=== PATIENT | male | born 1995 | race Caucasian/White ===

== ENCOUNTER 2020-08-29 07:50 | Outpatient (REF) | payer OTHER, SELFPAY | END 2020-08-29 07:51 | disposition home or self-care (01) | LOC: HO.HMGCLDS 07:50 | PROVIDERS: PCP Nurse Practitioner Family; Visit Provider Internal Medicine | DX: Z20.828 Contact with and (suspected) exposure to other viral communicable diseases (principal) | CPT/HCPCS: C9803; U0003 ==

== ENCOUNTER → 2021-01-01 11:18 | Outpatient (BNVA) | payer OTHER, SELFPAY | PROVIDERS: PCP Nurse Practitioner Family; Visit Provider Nurse Practitioner ==

== ENCOUNTER → 2021-03-24 15:12 | Outpatient (BNVA) | payer OTHER, SELFPAY | PROVIDERS: PCP Nurse Practitioner Family; Visit Provider Nurse Practitioner | DX: Z13.89 Encounter for screening for other disorder (principal) | CPT/HCPCS: Q3014 ==

== ENCOUNTER → 2021-10-27 09:52 | Outpatient (BNVA) | payer OTHER, SELFPAY | PROVIDERS: PCP Nurse Practitioner Family; Referring Provider Nurse Practitioner Family; Visit Provider Nurse Practitioner | DX: K21.9 Gastro-esophageal reflux disease without esophagitis (principal); K58.0 Irritable bowel syndrome with diarrhea; R13.12 Dysphagia, oropharyngeal phase | CPT/HCPCS: 99212 ==

== ENCOUNTER → 2022-04-28 08:08 | Outpatient (BNVA) | payer OTHER, SELFPAY | PROVIDERS: PCP Nurse Practitioner Family; Visit Provider Nurse Practitioner | DX: K21.9 Gastro-esophageal reflux disease without esophagitis (principal); K58.0 Irritable bowel syndrome with diarrhea; R13.12 Dysphagia, oropharyngeal phase; Z79.899 Other long term (current) drug therapy | CPT/HCPCS: 99212 ==

== ENCOUNTER 2023-04-27 08:12 | Outpatient (AMB) | payer OTHER, SELFPAY ==
--- NOTE | 2023-04-27 08:14 | A.OFFVIS_ITS ---
Intake Intake Visit Reasons: 1 yr follow up Allergies divalproex sodium [From DEPAKOTE] Allergy (Unknown, Verified 07/13/22 16:22) UNKNOWN lithium [LITHIUM] Allergy (Unknown, Verified 07/13/22 16:22) STOMACH UPSET, nausea and vomiting, vomiting risperidone [From RISPERDAL] Allergy (Unknown, Verified 07/13/22 16:22) NAUSEA & VOMITING Cheese Flavor Allergy (Unknown, Uncoded 07/13/22 16:22) Unknown HPI 1 yr follow up HPI Details Assessment & Plan (1) GERD (gastroesophageal reflux disease): ?Code(s): K21.9 - Gastro-esophageal reflux disease without esophagitis (2) Irritable bowel syndrome with diarrhea: ?Code(s): K58.0 - Irritable bowel syndrome with diarrhea (3) Oropharyngeal dysphagia: ?Comment: ?resolved with better control of the reflux ?Code(s): R13.12 - Dysphagia, oropharyngeal phase ? ? ? Medications: Refilled sucralfate 1 g? PO QID 112 ta bs 12RF K58.0 - Irritable bowel syndrome wit h diarrhea ? rbjsak-thbgxafh-kr ylase 24,000-76,00 0 -120,000 unit (C reon) 1 cap? PO QID 112 caps 12RF K58.0 - Irritable bowel syndrome wit h diarrhea ? dicyclomine 10 mg? PO TID 30 d ays 90 caps 2RF K58.0 - Irritable bowel syndrome wit h diarrhea, R13.12 - Dysphagia, orop haryngeal phase ? cimetidine 400 mg? PO BEDTIME 28 tabs 12RF K21.9 - Gastro-eso phageal reflux dis ease without esoph agitis CORRESPONDENCE On 03/22/22 @ 15:00 Carlee Aguilera Wrote To Gavin,January PT wanted me to make you aware he will no longer be coming into the office for appointments unless he needs a refill on his medications. TODAY'S VISIT He is here today with a female family member who is supportive. He surprisingly talkative today as he tells me he continues to do well on his GI regimen. 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 He continues on his Carafate, cimetidine, dicyclomine and Creon. Since he continues to be happy with his GI regimen I will see him again in 1 year. FORMERLY [facility], [facility] Surgical History [place] teeth extracted Family History Father No problems noted. Mother HTN (hypertension) Asthma Diabetes mellitus Social History Household Members: Family Alcohol intake: never Patient Tobacco Use Status: Never used Tobacco Review of Systems Const Denies fatigue, Denies fever(s), Denies night sweats, Denies poor appetite and Denies weight loss Eyes Details: Glasses Reports requires corrective lenses ENT Reports Normal hearing present, Denies dental pain, Denies dysphagia, Denies hearing loss, Denies mouth pain, Denies odynophagia, Denies throat swelling, Denies tongue swelling and Reports other (Dentition adequate) Card Reports no additional complaints Resp Reports no additional complaints GI Denies abdominal pain, Denies melena, Denies bloating, Denies hematochezia, Reports constipation, Denies GI cramping, Denies dysphagia, Denies excessive flatus, Denies early satiety, Reports heartburn, Reports diarrhea, Denies nausea , Denies odynophagia, Denies vomiting and Denies hematemesis Skin/Breast Denies pruritus, Denies lesions, Denies rash and Denies jaundice Neuro Reports Normal hearing present and Denies Abnormal speech present Psych Details: The autism Endo Denies fatigue Aller/Immun Denies throat swelling and Denies tongue swelling Physical Exam Const General: cooperative, no acute distress, well developed and well groomed Nutritional Appearance: average body habitus and well nourished Orientation/consciousness: oriented to person, oriented to place and oriented to time Limitations: No language barrier and other limitations HEENT Head: Yes normocephalic and Yes atraumatic Eyes General: appearance normal, both eyes and all related structures Pupils: Equal, round and reactive pupils present Neck Neck: Yes normal visual inspection and Yes no lymphadenopathy Thyroid: Thyroid normal Resp Effort & Inspection: normal respiratory effort and able to speak in complete sentences Auscultation: clear to auscultation bilaterally Cardio Rate: regular rate Rhythm: regular rhythm Heart sounds: Normal, physiologic split S2 sound present Peripheral pulses: radial pulses present and posterior tibial pulses present GI Inspection: No distended and No Abdominal panniculus present Palpation (GI): Soft to palpation, nontender, no guarding, not rigid and No hepatosplenomegaly present Percussion: Yes normal to percussion Auscultation: normal bowel sounds Rectal Exam - Male: Yes deferred Skin General skin exam: no rashes or lesions noted, turgor normal, skin not dry, no jaundice, No spider nevi and no striae Rashes: no rashes Nails: normal Neuro General: oriented to person, oriented to place and oriented to time Cranial nerves: Yes Equal, round and reactive pupils present and Yes Normal h earing present Speech: No Abnormal speech present Extrem General: Yes normal to inspection, No clubbing, No cyanosis and No edema Psych Appearance: grossly normal and well kempt Mental Status: mental status grossly normal Speech and movement: Normal speech and movement present Affect: normal affect Attitude: cooperative and Avoids eye contact (attititude/behavior) (His baseline as autism) Thought process: Normal thought process present and not confabulating Thought content: Normal thought content present Insight: Limited insight present (Psych) Judgement: Limited judgement present (Psych) Assessment & Plan Assessment & Plan (1) GERD (gastroesophageal reflux disease): Code(s): K21.9 - Gastro-esophageal reflux disease without esophagitis Plan: He is here today with a female family member who is supportive. He surprisingly talkative today as he tells me he continues to do well on his GI regimen. 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 He continues on his Carafate, cimetidine, dicyclomine and Creon. Since he continues to be happy with his GI regimen I will see him again in 1 yea (2) Irritable bowel syndrome with diarrhea: Code(s): K58.0 - Irritable bowel syndrome with diarrhea Medications: Refilled cimetidine 400 mg PO BEDTIME 28 tabs 12RF K21.9 - Gastro-esophageal reflux disease without esophagitis dicyclomine 10 mg PO TID 84 caps 12RF K58.0 - Irritable bowel syndrome with diarrhea, R13.12 - Dysphagia, oropharyngeal phase dopcfn-uihgcgom-tqpsdal 24,000-76,000 -120,000 unit (Creon) 1 cap PO QID 112 caps 12RF K58.0 - Irritable bowel syndrome with diarrhea sucralfate 1 g PO QID 112 tabs 12RF K58.0 - Irritable bowel syndrome with diarrhea Coding Level of Care Code Est Pt Level 3 (21899) Diagnoses GERD (gastroesophageal reflux disease) K21.9 Irritable bowel syndrome with diarrhea K58.0
== END 2023-04-27 08:36 | disposition home or self-care (01) ==
PROVIDERS: Visit Provider Nurse Practitioner
DX: K21.9 Gastro-esophageal reflux disease without esophagitis (principal); K58.0 Irritable bowel syndrome with diarrhea
CPT/HCPCS: 99213

== ENCOUNTER → 2023-04-27 08:12 | Outpatient (BNVA) | payer OTHER, SELFPAY | PROVIDERS: Visit Provider Nurse Practitioner | DX: K21.9 Gastro-esophageal reflux disease without esophagitis (principal); K58.0 Irritable bowel syndrome with diarrhea | CPT/HCPCS: 99212 ==

== ENCOUNTER 2023-10-17 10:51 | Outpatient (AMB) | payer OTHER, SELFPAY ==
--- NOTE | 2023-10-17 11:00 | MHC.PC.OV ---
Vital Signs 10/17/23 11:01 Weight 213 lb BP 120/86 Blood Pressure Location Lt brachial Position Sitting Pulse 103 H Pulse Source Pulse Oximeter Pulse Oximetry (%) 99 Oxygen Delivery Method Room Air Intake Visit Reasons: Annual PE Intake Note: Patient here for physical exam. no new issues or concerns. Allergies divalproex sodium [From DEPAKOTE] Allergy (Unknown, Verified 10/17/23 11:02) UNKNOWN lithium [LITHIUM] Allergy (Unknown, Verified 10/17/23 11:02) STOMACH UPSET, nausea and vomiting, vomiting risperidone [From RISPERDAL] Allergy (Unknown, Verified 10/17/23 11:02) NAUSEA & VOMITING Cheese Flavor Allergy (Unknown, Uncoded 10/17/23 11:02) Unknown Tobacco use date assessed: 10/17/23 Dental Screening Dental Screen Date: 10/17/23 Did you have a dental visit in the last 12 months?: Yes Did you have a dental problem in the last 6 months where you did not have access to dental care?: No Was dental information given to patient?: Patient has dentist HPI Annual PE HPI Details Pt is here for a PE. Will order labs. PFSH Surgical History [place] teeth extracted Family History Father No problems noted. Mother HTN (hypertension) Asthma Diabetes mellitus Social History Household Members: Family Housing: House Alcohol intake: never Patient Tobacco Use Status: Never used Tobacco e-Cigarette/Vaping Use: Never Used Current occupational status: employed and unemployed Current occupational exposures/hazards: No Cognitive needs: No Hearing needs: No Vision needs: Yes Questionnaire PHQ-9 Over the last 2 weeks, how often have you been bothered by any of the following problems? 48234 - PHQ-9 Billing: Patient declined-do not bill Source: Developed by Drs. Vlad Quiles, Zulma Lindsay, Linwood Lee and colleagues, with an educational jonah from [employer] Thrive Questionnaire Date Thrive assessed: 10/17/23 What is your living situation today?: I choose not to answer this question Within the past 12 months, did the food you bought not last and you didn't have the money to get more?: I choose not to answer this question Within the past 12 months, did you worry whether your food would run out before you got money to buy more?: I choose not to answer this question Do you have trouble paying for medicines?: I choose not to answer this question Do you have trouble getting transportation to medical appointments?: I choose not to answer this question Do you have trouble paying your heating and electricity bill?: I choose not to answer this question Do you have trouble taking care of your child, family member or friend?: I choose not to answer this question Do you have trouble with day-to-day activities such as bathing, preparing meals, shopping, managing finances, etc.?: I choose not to answer this question Are you currently unemployed and looking for a job?: I choose not to answer this question Are you interested in more education?: I choose not to answer this question AUDIT C Alcohol Use Questionnaire (AUDIT-C) 1. How often do you have a drink containing alcohol?: Never 3. How often do you have six or more drinks on one occasion?: Never Total Score: 0 Score Reviewed/Action Taken: No SHIV-7 AMB Questionnaire SHIV-7 Date SHIV - 7 assessed: 10/17/23 Source: Developed by Drs. Vlad Quiles, Zulma Lindsay, Linowod Lee and colleagues, with an educational jonah from [employer] SHIV-7 Assessment Billing SHIV-7 Assessment Tool: pt declined-do not bill Review of Systems Const Denies chills and Denies fever(s) Eyes Denies blurry vision ENT Denies vertigo, Denies dizziness and Denies sore throat Card Denies chest pain at rest, Denies chest pain with activity, Denies diaphoresis, Denies dyspnea and Denies dyspnea on exertion Resp Denies cough, Denies dyspnea, Denies dyspnea on exertion and Denies wheezing GI Denies abdominal pain, Denies melena, Denies hematochezia, Denies constipation, Denies diarrhea and Denies loose stools Denies hematuria Musc Denies numbness and Denies tingling Skin/Breast Denies lesions Neuro Denies vertigo, Denies dizziness, Denies numbness and Denies tingling Psych Denies anxiety, Denies depression, Denies homicidal ideation, Denies suicidal ideation and Denies other (substance abuse) Aller/Immun Denies wheezing Physical exam (Primary Care) Vital Signs: Last Vital Signs Pulse 103 H 10/17/23 11:01 BP 120/86 10/17/23 11:01 Pulse Ox 99 10/17/23 11:01 Oxygen Delivery Method Room Air 10/17/23 11:01 Tobacco/Smoking Status: Tobacco use Status Tobacco use date assessed 10/17/23 10/17/23 11:05 Patient Tobacco Use Status Never used Tobacco 10/17/23 11:01 e-Cigarette/Vaping Use Never Used 10/17/23 11:05 Thrive Assessment: Date of Thrive Assessment Date Thrive assessed 10/17/23 10/17/23 11:05 Const General: cooperative Nutritional Appearance: well nourished Orientation/consciousness: patient oriented x3 HENMT Other: cerumen noted to left ear, after ear lavage TM easily seen Head: Yes normal to inspection, Yes normocephalic and Yes atraumatic Ears: TM normal on the right Eyes General: appearance normal, both eyes and all related structures Alignment and Position: alignment normal and position normal Neck Neck: Yes normal visual inspection and Yes no lymphadenopathy Thyroid: Thyroid normal Resp Effort & Inspection: normal respiratory effort Auscultation: clear to auscultation bilaterally Cardio Rate: regular rate Rhythm: regular rhythm Heart sounds: S1 normal heart sound present, S2 normal heart sound present and no murmurs GI Palpation (GI): Soft to palpation and nontender Auscultation: normal bowel sounds Male General Exam: Yes normal external exam Penis: normal penis Scrotum: scrotum normal, testes descended bilaterally and no inguinal hernias Testes: no testicular mass Skin Rashes: no rashes Neuro General: patient oriented x3, moves all extremities, no focal motor deficits and deep tendon reflexes 2+ bilaterally Romberg Test: Negative Psych Appearance: grossly normal Mental Status: mental status grossly normal Speech and movement: Normal speech and movement present Affect: normal affect Attitude: cooperative Thought process: Normal thought process present Thought content: Normal thought content present Insight: Good insight present (Psych) Judgement: Good judgement present (Psych) Office Procedures Cerumen Removal From which ear canal was the cerumen removed: left Removal: irrigation Notes: patient tolerated procedure well, no complications and ear canal clear [id number] Irrigation/Lavage Assessment and Plan Assessment & Plan (1) Physical exam: Code(s): Z00.00 - Encounter for general adult medical examination without abnormal findings Plan: Labs ordered (2) Excessive cerumen in left ear canal: Code(s): H61.22 - Impacted cerumen, left ear Plan: flushed without difficulty Plan The patient agreed to the use of a certified court/medical interpreter for this encounter. Scribed for NEHEMIAS Calvillo by Benita Oquendo certified court/medical interpreter, on 10/17/2023 at 11:15 EST. Orders: Orders UA CC w/rflx Micro + Cult Today H61.20 - Impacted cerumen, unspecified ear, Z00.00 - Encounter for general adult medical examination without abnormal findings Lipid Panel Today H61.20 - Impacted cerumen, unspecified ear, Z00.00 - Encounter for general adult medical examination without abnormal findings Complete Blood Count Auto Diff Today H61.20 - Impacted cerumen, unspecified ear, Z00.00 - Encounter for general adult medical examination without abnormal findings Comprehensive [place]. Panel Fast Today H61.20 - Impacted cerumen, unspecified ear, Z00.00 - Encounter for general adult medical examination without abnormal findings TSH reflex Free T4 Today H61.20 - Impacted cerumen, unspecified ear, Z00.00 - Encounter for general adult medical examination without abnormal findings Coding Level of Care Code Est Pt Prev Care 18-39y(96166) Diagnoses Physical exam Z00.00 Excessive cerumen in left ear canal H61.22 CPT Codes Office Procedure - CPT: 96021-Iau Irrigation/Lavage ([id number])
[2023-10-17 11:01] VITALS: BP 120/86; PULSE 103; O2SAT 99
== END 2023-10-17 12:34 | disposition home or self-care (01) ==
PROVIDERS: PCP Nurse Practitioner Family; Visit Provider Nurse Practitioner Family
DX: Z00.00 Encounter for general adult medical examination without abnormal findings (principal); H61.22 Impacted cerumen, left ear
CPT/HCPCS: 69209; 99395

== ENCOUNTER 2023-10-28 11:44 | Outpatient (AMB) | payer OTHER, SELFPAY ==
--- NOTE | 2023-10-28 11:46 | AM.OFFWIN_ITS ---
Intake Vital Signs 10/28/23 11:58 Height 5 ft 8 in Weight 215 lb BMI 32.7 BP 140/80 H Blood Pressure Location Lt brachial Position Sitting Pulse 83 Pulse Source Pulse Oximeter Temp 97.0 F Temp Source Temporal Artery Scan Pulse Oximetry (%) 98 Oxygen Delivery Method Room Air Intake Visit Reasons: EP coughing sneezing [id number] Intake Note: pt is here today for coughing sneezing started 1 week ago Patient Tobacco Use Status: Never used Tobacco Allergies divalproex sodium [From DEPAKOTE] Allergy (Unknown, Verified 10/28/23 12:00) UNKNOWN lithium [LITHIUM] Allergy (Unknown, Verified 10/28/23 12:00) STOMACH UPSET, nausea and vomiting, vomiting risperidone [From RISPERDAL] Allergy (Unknown, Verified 10/28/23 12:00) NAUSEA & VOMITING Cheese Flavor Allergy (Unknown, Uncoded 10/17/23 11:02) Unknown Do you need a note to return to daycare/school/sports/work: Yes HPI HPI Comments History of Present Illness Details This is a 28-year-old male who is presenting to the office requesting a return to work note. The patient has mild URI symptoms including nasal/sinus congestion, rhinorrhea with clear drainage, and a dry cough. He denies any shortness a breath or fever/chills. He denies any nausea/vomiting/diarrhea. Patient and his mother state that the patient tested positive for COVID-19 on 10/22/2023 and we had a negative COVID-19 test today on 10/28/2023. Patient and his mother are requesting a note so that he may return to his program and work. The patient still has very mild cold symptoms but the patient feels like they have improved. He has not had any fevers. [facility] Surgical History [place] teeth extracted Family History Father No problems noted. Mother HTN (hypertension) Asthma Diabetes mellitus Social History Household Members: Family Housing: House Alcohol intake: never Patient Tobacco Use Status: Never used Tobacco e-Cigarette/Vaping Use: Never Used Current occupational status: employed and unemployed Current occupational exposures/hazards: No Cognitive needs: No Hearing needs: No Vision needs: Yes Review of Systems Const All systems reviewed & are unremarkable except as noted in HPI and below Reports no additional complaints Eyes Reports no additional complaints ENT Reports no additional complaints Card Reports no additional complaints Resp Reports no additional complaints GI Reports no additional complaints Reports no additional complaints Musc Reports no additional complaints Skin/Breast Reports system reviewed and no additional complaints, except as documented Neuro Reports no additional complaints Psych Reports no additional complaints Endo Reports no additional complaints Marcel/Lymph Reports no additional complaints Aller/Immun Reports no additional complaints Physical Exam Vital Signs: Last Vital Signs Temp 97.0 F 10/28/23 11:58 Pulse 83 10/28/23 11:58 BP 140/80 H 10/28/23 11:58 Pulse Ox 98 10/28/23 11:58 Oxygen Delivery Method Room Air 10/28/23 11:58 BMI result Body Mass Index 32.7 Const Other: Vital signs reviewed. Constitutional: Non-toxic appearing. No acute distress. Well-developed and well-nourished. HEENT: Normocephalic and atraumatic. External auditory canals without erythema or edema bilaterally. Moist mucous membranes. No pharyngeal erythema or exudates. Skin: Warm and dry. No rashes or lesions noted. Neck: Full and painless range of motion. No cervical lymphadenopathy. Cardio: Regular rate and rhythm. No murmurs, gallops, or rubs. No lower extremity edema. No JVD. Pulmonary: No respiratory distress. No accessory muscle usage. Clear to auscultation bilaterally without wheezing, crackles, or rhonchi. Gastrointestinal: Soft, nontender, and nondistended in all 4 quadrants. Normoactive bowel sounds in all 4 quadrants. Genitourinary: No CVA tenderness. Musculoskeletal: Normal range of motion in joints throughout the body. No deformity or other signs of injury. Neuro: Alert and oriented x4. Cranial nerves 2-12 grossly intact. No focal deficits appreciated. Psych: Normal mood and affect. Assessment & Plan Assessment & Plan (1) COVID-19: Code(s): U07.1 - COVID-19 Plan: This is a 28-year-old male who presented to the walk-in clinic requesting a return to work note in the setting of recently diagnosed COVID-19. Patient tested positive for COVID-19 on 10/22/2023 and he had a repeat negative COVID test today on 10/28/2023. He reports very mild cold symptoms such as nasal/sinus congestion, rhinorrhea with clear nasal drainage, and a dry cough but he feels as though his symptoms are improving. The patient has been fever free. The patient completed 5 days of isolation on 10/27/2023 and he was educated that he needs to wear a mask while around other people for an additional 5 days until 11/01/2023. The patient can return to his program on Tuesday October 31, 2023 and Wednesday, November 01, 2023 while wearing a mask. He can return to work on Thursday November 02, 2023 without a mask as long as his symptoms have resolved. The patient and his mother verbalized their understanding. Coding Level of Care Code Est Pt Level 3 (94104) Diagnoses COVID-19 U07.1
[2023-10-28 11:58] VITALS: BP 140/80; PULSE 83; TEMP 36.1; O2SAT 98; BMI 32.7
== END 2023-10-28 12:20 | disposition home or self-care (01) ==
PROVIDERS: PCP Nurse Practitioner Family; Visit Provider Physician Assistant Medical
DX: U07.1 COVID-19 (principal)
CPT/HCPCS: 99213

== ENCOUNTER 2024-08-27 07:54 | Outpatient (AMB) | payer OTHER, SELFPAY ==
--- NOTE | 2024-08-27 07:35 | MHC.OFFVIS ---
Intake Visit Reasons: pre op for dental procedure Allergies divalproex sodium [From DEPAKOTE] Allergy (Unknown, Verified 10/28/23 12:00) UNKNOWN lithium [LITHIUM] Allergy (Unknown, Verified 10/28/23 12:00) STOMACH UPSET, nausea and vomiting, vomiting risperidone [From RISPERDAL] Allergy (Unknown, Verified 10/28/23 12:00) NAUSEA & VOMITING Cheese Flavor Allergy (Unknown, Uncoded 10/17/23 11:02) Unknown HPI HPI pre op for dental procedure: Details: History of Present Illness The patient is a 29-year-old male presenting with an issue involving his teeth, specifically concerning his upcoming dental procedure. The primary concern stems from dental problems localized to the right lower posterior region. The patient has multiple teeth that may require root canal therapy or, alternatively, extraction due to their condition. The exact course of action will be decided during the dental appointment scheduled for September 04. It is noted that he will be under anesthesia/conscious sedation for this procedure. Previously, the patient experienced significant nausea following anesthesia, indicating a sensitivity. The patient denies recent fevers or chills and has no known issues such as heart conditions, chest pain, or shortness of breath. He reports a history of small teeth fractures but no recent precipitating events have been mentioned. Social History - No specific social determinants of health discussed during the visit. Review of Systems - Neurological: Denies fevers or chills - Cardiovascular: Denies chest pain, denies shortness of breath - General: Denies recent illness Physical Exam televisit: good skin color, no diaphoresis, good spirits, no acute distress noted Results Plan - Dental Procedure: The patient is scheduled for a dental procedure on September 04, involving anesthesia/conscious sedation with attention to possible nausea as an adverse effect. Further dental evaluation will determine whether a root canal or extraction is necessary. - Anesthesia Management: Ensure awareness and preparedness for potential nausea following anesthesia to manage reactions effectively. Patient was informed and verbally consented to the use of an ambient scribe for clinic note documentation during this visit. Discussion Notes I discussed in detail with the patient the upcoming dental procedure and the potential need for either a root canal or tooth extraction, which will depend on an in-procedure assessment. The patient is aware of the potential side effects of anesthesia, specifically nausea, and we discussed the importance of informing the dental team of his past adverse reaction to anesthesia. No antibiotics or blood thinners involved with any previous dental procedures. Patient Instructions - Proceed with the scheduled dental appointment on September 04. - Inform dental staff about previous nausea from anesthesia. - Monitor for any new symptoms or changes in health and report if necessary. [facility] Surgical History [place] teeth extracted Family History Father No problems noted. Mother HTN (hypertension) Asthma Diabetes mellitus Social History Household Members: Family Housing: House Alcohol intake: never Patient Tobacco Use Status: Never used Tobacco e-Cigarette/Vaping Use: Never Used Current occupational status: employed and unemployed Current occupational exposures/hazards: No Cognitive needs: No Hearing needs: No Vision needs: Yes Telehealth Telehealth Telehealth Platform: [employer] Location of provider rendering services: practice address Location of patient: address on file Patient Identification confirmed using: Name, : Yes Telehealth method: video Patient verbally consented to treatment: Yes Patient verbally consented to billing insurance company: Yes Patient informed of any privacy concerns related to visit: Yes Minutes spent on Phone/Video with Pt.: 10 Assessment & Plan Assessment & Plan (1) Dental caries: Code(s): K02.9 - Dental caries, unspecified Category: Medical (2) Pre-op evaluation: Code(s): Z01.818 - Encounter for other preprocedural examination Category: Medical Plan . Coding Level of Care Code Tele Est Pt Level 3 (55131) Diagnoses Dental caries K02.9 Pre-op evaluation Z01.818
== END 2024-08-27 09:37 | disposition home or self-care (01) ==
PROVIDERS: PCP Nurse Practitioner Family; Visit Provider Nurse Practitioner Family
DX: K02.9 Dental caries, unspecified (principal); Z01.818 Encounter for other preprocedural examination

== ENCOUNTER 2024-12-27 10:13 | Outpatient (AMB) | payer OTHER, SELFPAY ==
[2024-12-27 10:21] VITALS: BP 122/62; PULSE 82; BMI 27.1
--- NOTE | 2024-12-27 10:21 | A.OFFVIS_ITS ---
Vital Signs 12/27/24 10:21 Height 5 ft 8 in Weight 178 lb 2.136 oz BMI 27.1 BP 122/62 Blood Pressure Location Rt brachial Position Sitting Pulse 82 Intake Visit Reasons: 1 year f/u Intake Note: Griffin presents in 1 year follow up of GERD and IBS. CC: Patient reports doing well and denies any new GI symptoms or concerns. 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 Accompanied by: Mother Allergies divalproex sodium [From DEPAKOTE] Allergy (Unknown, Verified 12/27/24 11:21) UNKNOWN lithium [LITHIUM] Allergy (Unknown, Verified 12/27/24 11:21) STOMACH UPSET, nausea and vomiting, vomiting risperidone [From RISPERDAL] Allergy (Unknown, Verified 12/27/24 11:21) NAUSEA & VOMITING Cheese Flavor Allergy (Unknown, Uncoded 10/17/23 11:02) Unknown HPI HPI 1 year f/u: Details: Assessment & Plan (1) GERD (gastroesophageal reflux disease): Code(s): K21.9 - Gastro-esophageal reflux disease without esophagitis Plan: He is here today with a female family member who is supportive. He surprisingly talkative today as he tells me he continues to do well on his GI regimen. 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 He says he really likes to make homemade sauces. He continues on his Carafate, cimetidine, dicyclomine and Creon. Since he continues to be happy with his GI regimen I will see him again in 1 yea (2) Irritable bowel syndrome with diarrhea: Code(s): K58.0 - Irritable bowel syndrome with diarrhea Medications: Refilled cimetidine 400 mg PO BEDTIME 28 tabs 12RF K21.9 - Gastro-esophageal reflux disease without esophagitis dicyclomine 10 mg PO TID 84 caps 12RF K58.0 - Irritable bowel syndrome with diarrhea, R13.12 - Dysphagia, oropharyngeal phase [id number]-[id number]-zokfzyt 24,000-76,000 -120,000 unit (Creon) 1 cap PO QID 112 caps 12RF K58.0 - Irritable bowel syndrome with diarrhea sucralfate 1 g PO QID 112 tabs 12RF K58.0 - Irritable bowel syndrome with diarrhea TODAY'S VISIT He continues to do well on his cimetidine, dicyclomine, Creon and sucralfate. He remains happy with his GI regimen. Return office visit in 6 months. [facility] Surgical History [place] teeth extracted Family History Father No problems noted. Mother HTN (hypertension) Asthma Diabetes mellitus Social History Household Members: Family Housing: House Alcohol intake: never Patient Tobacco Use Status: Never used Tobacco e-Cigarette/Vaping Use: Never Used Current occupational status: employed and unemployed Current occupational exposures/hazards: No Cognitive needs: No Hearing needs: No Vision needs: Yes Review of Systems Const Denies fatigue, Denies fever(s), Denies night sweats, Denies poor appetite and Denies weight loss ENT Reports Normal hearing present, Denies dental pain, Denies dysphagia, Denies hearing loss, Denies mouth pain, Denies odynophagia, Denies throat swelling, Denies tongue swelling and Reports other (Dentition adequate) Card Reports no additional complaints Resp Reports no additional complaints GI Details: Denies abdominal pain, Denies melena, Reports bloating, Denies hematochezia, Reports constipation, Denies GI cramping, Denies dysphagia, Denies excessive flatus, Denies early satiety, Reports heartburn, Reports diarrhea, Denies nausea, Denies odynophagia, Denies vomiting and Denies hematemesis Skin/Breast Denies pruritus, Denies lesions, Denies rash and Denies jaundice Neuro Reports Normal hearing present and Denies Abnormal speech present Endo Denies fatigue Aller/Immun Denies throat swelling and Denies tongue swelling Physical Exam Vital Signs: Last Vital Signs Pulse 82 12/27/24 10:21 BP 122/62 12/27/24 10:21 BMI result Body Mass Index 27.1 Const General: cooperative, no acute distress, well developed and well groomed Nutritional Appearance: average body habitus and well nourished Orientation/consciousness: oriented to person, oriented to place and oriented to time Limitations: No language barrier and other limitations HEENT Head: Yes normocephalic and Yes atraumatic Eyes General: appearance normal, both eyes and all related structures Pupils: Equal, round and reactive pupils present Neck Neck: Yes normal visual inspection and Yes no lymphadenopathy Thyroid: Thyroid normal Resp Effort & Inspection: normal respiratory effort and able to speak in complete sentences Auscultation: clear to auscultation bilaterally Cardio Rate: regular rate Rhythm: regular rhythm Heart sounds: Normal, physiologic split S2 sound present Peripheral pulses: radial pulses present and posterior tibial pulses present GI Inspection: No distended and No Abdominal panniculus present Palpation (GI): Soft to palpation, nontender, no guarding, not rigid and No hepatosplenomegaly present Percussion: Yes normal to percussion Auscultation: normal bowel sounds Rectal Exam - Male: Yes deferred Skin General skin exam: no rashes or lesions noted, turgor normal, skin not dry, no jaundice, No spider nevi and no striae Rashes: no rashes Nails: normal Neuro General: oriented to person, oriented to place and oriented to time Cranial nerves: Yes Equal, round and reactive pupils present and Yes Normal hearing present Speech: No Abnormal speech present Extrem General: Yes normal to inspection, No clubbing, No cyanosis and No edema Psych Appearance: grossly normal and well kempt Mental Status: mental status grossly normal Speech and movement: Normal speech and movement present Affect: normal affect Attitude: cooperative Thought process: Normal thought process present and not confabulating Thought content: Normal thought content present Insight: Limited insight present (Psych) Judgement: Limited judgement present (Psych) Assessment & Plan Assessment & Plan (1) GERD (gastroesophageal reflux disease): Code(s): K21.9 - Gastro-esophageal reflux disease without esophagitis Category: Medical (2) Irritable bowel syndrome with diarrhea: Code(s): K58.0 - Irritable bowel syndrome with diarrhea Category: Medical (3) Oropharyngeal dysphagia: Comment: resolved with better control of the reflux Code(s): R13.12 - Dysphagia, oropharyngeal phase Category: Medical Plan He continues to do well on his cimetidine, dicyclomine, Creon and sucralfate. He remains happy with his GI regimen. Return office visit in 6 months. Medications: Refilled dicyclomine 10 mg PO TID 84 caps 12RF K58.0 - Irritable bowel syndrome with diarrhea, R13.12 - Dysphagia, oropharyngeal phase [id number]-qsqztwli-yugymun 24,000-76,000 -120,000 unit (Creon) 1 cap PO QID 112 caps 12RF K58.0 - Irritable bowel syndrome with diarrhea sucralfate 1 g PO QID 112 tabs 12RF K58.0 - Irritable bowel syndrome with diarrhea Coding Level of Care Code Est Pt Level 3 (20809) Diagnoses GERD (gastroesophageal reflux disease) K21.9 Irritable bowel syndrome with diarrhea K58.0 Oropharyngeal dysphagia R13.12
--- OUTSIDE RECORDS SUMMARY | 2024-12-27 13:13 | XMS_ITS | Encounter Summary ---
Author Organization Counts Include [facility] [employer] [facility] Address [address] [place] [address] Care Team Providers Care Health Educator Name Role Phone Unavailable Primary Care Provider Unavailabl e Encounter Details Date Type Department Care Team (Latest Contact Info) Description 02/03/2021 Abstract C CONVERSIONS Dental, Provider, DDS Social History Tobacco Use Types Packs/Day Years Used Date Smoking Tobacco: Never Assessed Sex and Gender Information Value Date Recorded Sex Assigned at Male 08/02/2022 10:27 AM EDT Legal Sex Male 10:27 AM EDT Gender Identity Male 08/02/2022 10:27 AM EDT Sexual Orientation Straight 08/02/2022 10 :27 AM EDT documented as of this encounter Plan of Treatment Not on file documented as of this encounter Visit Diagnoses Not on filedocumented in this encounter
--- OUTSIDE RECORDS SUMMARY | 2024-12-27 13:13 | XMS_ITS | Clinical Summary ---
Author Organization [employer] Address [address] [place] [address] Care Team Providers Care Missing Persons Investigator Name Role Phone Unavailable Primary Care Provider Unavailabl e Social History Tobacco Use Types Packs/Day Years Used Date Smoking Tobacco: Never Assessed Sex and Gender Information Value Date Recorded Sex Assigned at Male 08/02/2022 10:27 AM EDT Legal Sex Male 10:27 AM EDT Gender Identity Male 08/02/2022 10:27 AM EDT Sexual Orientation Straight 08/02/2022 10 :27 AM EDT Plan of Treatment Health Maintenance Due Date Last Done Comments Depression Screening 1997 Alcohol/Substance Use Screening 2009 Tobacco Screening 2009 Family Planning (PISQ) 01/21/2012 DTaP/Tdap/Td Vaccines (1 - Tdap) 01/21/2016 Hepatitis B Vaccines (1 of 3 - 19+ 3-dose series) 01/21/2016 COVID-19 Vaccine ( - 2023-2 5 season) 2024 Influenza Vaccine (#1) 2024 Zoster Vaccines (1 of 2) 2047 RSV Patients and Pa tients Aged 60 years or older (1 - 1-dose 75+ series) 01/21/2072 HIB Vaccines Aged Out No longer eligi ble based on patient's age to complete this topic HPV Vaccines Aged Out No longer eligi ble based on patient's age to complete this topic Hepatitis A Vaccines Aged Out No long er eligible based on patient's age to complete this topic IPV Vaccines Aged Out No longer eligi ble based on patient's age to complete this topic Meningococcal Vaccine Aged Out No yaya linus eligible based on patient's age to complete this topic Pneumococcal Vaccine: Pediat rics (0 to 5 Years) and At-Risk Patients (6 to 49) Years) Aged Out No longer eligible b ased on patient's age to complete this topic RSV under 20 months Aged Out No longe r eligible based on patient's age to complete this topic Rotavirus Vaccines Aged Out No longer eligible based on patient's age to complete this topic
--- OUTSIDE RECORDS SUMMARY | 2024-12-27 13:13 | XMS_ITS | Encounter Summary ---
Author Organization [facility] [employer] [facility] Address [address] [place] [address] Care Team Providers Care District Operations Manager Name Role Phone Unavailable Primary Care Provider Unavailabl e Encounter Details Date Type Department Care Team (Latest Contact Info) Description 04/23/2019 Abstract C CONVERSIONS Dental, Provider, DDS Social [...]
== END 2024-12-27 11:27 | disposition home or self-care (01) ==
LOC: HO.HGI 10:13
PROVIDERS: PCP Nurse Practitioner Family; Visit Provider Nurse Practitioner
DX: K21.9 Gastro-esophageal reflux disease without esophagitis (principal); K58.0 Irritable bowel syndrome with diarrhea; R13.12 Dysphagia, oropharyngeal phase
CPT/HCPCS: 99213

== ENCOUNTER → 2024-12-27 10:13 | Outpatient (BNVA) | payer OTHER, SELFPAY | PROVIDERS: PCP Nurse Practitioner Family; Visit Provider Nurse Practitioner | DX: K21.9 Gastro-esophageal reflux disease without esophagitis (principal); K58.0 Irritable bowel syndrome with diarrhea; R13.12 Dysphagia, oropharyngeal phase | CPT/HCPCS: 99212 ==